=== PATIENT | female | born 1995 | race Caucasian/White ===

== ENCOUNTER 2020-04-23 23:39 | Emergency (ER) | payer OTHER ==
[~2020-04-23] VITALS: Ht 175.3 cm; Wt 130.6 kg
[~2020-04-23 23:39] MED LIST: BACTRIM DS TAB1 EACH PO; BACTROBAN CREAM30 G1 TOP; DOXYCYCLINE 10100 MG PO; IBUPROFEN 800800 M1 PO; ZOLOFT 50 MG TA50 M1
[2020-04-23] MEDS ORDERED: OMEPRAZOLE 20 M20 M1 PO (23:50)
[2020-04-23] MEDS ORDERED: VENLAFAXINE HC100 MG PO (23:51)
[2020-04-24 00:45] LABS: ABSOLUTE BASOPHILS 0.1 thou/uL (0.0-0.2); ABSOLUTE EOSINOPHILS 0.2 thou/uL (0.0-0.7); ABSOLUTE LYMPHOCYTES 3.1 thou/uL (0.8-5.3); ABSOLUTE MONOCYTES 0.6 thou/uL (0.0-1.2); ABSOLUTE NEUTROPHILS 4.4 thou/uL (1.6-8.1); BASOPHILS 0.6 %; EOSINOPHILS 2.1 %; HEMATOCRIT 39.5 % (37.0-47.0); HEMOGLOBIN 13.7 gm/dL (12.0-15.0); LYMPHOCYTES 37.4 %; MCH 30.9 pg (26.0-34.0); MCHC 34.6 g/dL (28.0-37.0); MCV 89.2 fL (80.0-100.0); MONOCYTES 6.9 %; MPV 7.3 fl. (7.2-11.1); NUCLEATED RBCS 0 /100WBC; PLATELET COUNT* 255 thou/uL (150-400); RBC 4.43 mil/uL (4.20-5.00); RDW-CV 12.8 % (10.5-14.5); WBC 8.4 thou/uL (4.0-11.0)
[2020-04-24 00:50] LABS: CALCIUM 8.9 mg/dL (8.5-10.1); CREATININE 0.8 mg/dL (0.6-1.3); POTASSIUM 3.6 mmol/L (3.5-5.1)
[2020-04-24 00:54] LABS: ALBUMIN 3.6 g/dL (3.4-5.0); TOTAL BILIRUBIN 0.3 mg/dL (<0.1-1.0); TOTAL PROTEIN 7.9 g/dL (6.4-8.2)
[2020-04-24] MEDS ORDERED: MECLIZINE HCL25 M1 PO (01:57)
[2020-04-24 02:17] VITALS: BP 168/95
[2020-04-25] MEDS ORDERED: BUTALB-APAP-CA1 EACH PO (19:58)
[2020-04-25] MEDS ORDERED: NAPROSYN500 MG PO ×2 (19:58→20:06)
[2020-04-25] MEDS ORDERED: APAP W/CODEINE1 TA2 PO (20:06)
== END 2020-04-24 02:17 | disposition home or self-care (01) ==
LOC: M.ERS 23:39
PROVIDERS: Emergency Medicine Emergency Medical Services
DX: R42 Dizziness and giddiness (principal); I10 Essential (primary) hypertension

== ENCOUNTER 2020-04-25 18:28 | Emergency (ER) | payer OTHER ==
[~2020-04-25] VITALS: Ht 175.3 cm; Wt 130.6 kg
[~2020-04-25 18:28] MED LIST changes: +MECLIZINE HCL25 M1 PO; +OMEPRAZOLE 20 M20 M1 PO; +VENLAFAXINE HC100 MG PO
[2020-04-25] MEDS ORDERED: BUTALB-APAP-CA1 EACH PO (19:58)
[2020-04-25] MEDS ORDERED: NAPROSYN500 MG PO ×2 (19:58→20:06)
[2020-04-25] MEDS ORDERED: APAP W/CODEINE1 TA2 PO (20:06)
[2020-04-25 20:27] VITALS: BP 138/79
--- NOTE | 2020-04-27 14:35 | EKG ---
[place] [address] ELECTROCARDIOGRAM REPORT Name: XIEJOSIE EUGENE Room: [facility]#: [id number] Admission: 04/25/20 Attend Phys: Discharge: 04/25/20 Date of : [birth year] Date of Service: 04/25/201835 Report #: [id number] THIS REPORT FOR: //name// [facility] ED Test Date: 2020-04-25 Test Time: 18:36:16 Pat Name: JOSIE XIE Department: Room: Gender: F [employer] Worker: [facility] : 1995 Requested By: Lolita Arguelles Order Number: [id number] MD: Tru Shah Measurements Intervals [place] Rate: 99 P: 50 NV: 220 QRS: 54 QRSD: 93 T: 20 QT: 361 QTc: 464 Interpretive Statements Sinus rhythm Prolonged NV interval Probable left atrial enlargement Baseline wander in lead(s) V2 No previous ECG available for comparison Electronically Signed On 04-27-2020 14:35:34 CDT by Tru Shah [email or web address] <ELECTRONICALLY SIGNED> By: Tru Sahh MD, [facility] 04/27/20 1435 1836 1836 Tru Shah MD, [facility] /EPI
== END 2020-04-25 20:13 | disposition home or self-care (01) ==
LOC: M.ERS 18:28
DX: G44.209 Tension-type headache, unspecified, not intractable (principal); R07.89 Other chest pain; I10 Essential (primary) hypertension; K21.9 Gastro-esophageal reflux disease without esophagitis